=== PATIENT | female | born 1975 | race Caucasian/White ===

== ENCOUNTER 2017-02-17 11:28 | Inpatient (IN) ==
[2017-02-17 12:04] LABS: MANUAL DIFF NEEDED? NO
[2017-02-17 12:06] LABS: BASO% 0.2 % (0.0-0.8); EOS% 1.1 % (0.0-10.0); HEMATOCRIT 33.6 % (37.0-47.0); HEMOGLOBIN 11.2 g/dL (12.0-16.0); IMM GRAN# 0.01 X1000 (0.0-0.04); IMM GRAN% 0.1 % (0.0-0.5); LYMPH# 0.96 X1000 (1.2-3.4); LYMPH% 10.9 % (20.5-51.1); MCH 27.9 PG (27-31); MCHC 33.3 g/dL (33-37); MCV 83.6 FL (81-99); MONO# 0.43 X1000 (0.11-0.59); MONO% 4.9 % (1.7-9.3); MPV 9.5 FL (7.4-10.4); NEUT% 82.8 % (42.2-75.2); PLT 343 X1000 (130-400); RBC 4.02 XMIL (4.2-5.4)
[2017-02-17 12:18] LABS: BE 2.1 mmoll (-3.0-3.0); BLOOD TYPE ARTERIAL; DRAW SITE R RADIAL; METHB 1.3 % (0.0-1.5); O2(CT) 14.3 mL/dL (15.0-23.0); PCO2(98.6) 34 mmHg (35-45); PO2(98.6) 68 mmHg (60-100); SAMPLE BLOOD; SAO2 97.5 % (95.0-100.0); THB 11.9 g/dL (11.5-17.4); pH(98.6) 7.48 (7.35-7.45)
[2017-02-17 12:21] LABS: ALLEN TEST YES; MODALITY CANNULA
[2017-02-17 12:22] LABS: AGAP 16; ALBUMIN 3.3 g/dL (3.5-5.0); ALKALINE PHOSPHATASE 86 U/L (32-104); BUN 7 mg/dL (8-22); CALCIUM 8.3 mg/dL (8.8-10.2); CHLORIDE 98 mmol/L (98-107); COSMO 269; GOT 16 U/L (10-30); GPT 8 U/L (10-36); POTASSIUM 3.1 mmol/L (3.5-5.1); SODIUM 135 mmol/L (136-145); TCO2 21 mmol/L (25-35)
--- NOTE | 2017-02-17 12:25 | EKG Report ---
Test Performed on : 02/17/2017 12:22:08 PM Test Reason : SOB Blood Pressure : / mmHG Vent. Rate : 096 BPM Atrial Rate : 096 BPM P-R Int : 134 ms QRS Dur : 092 ms QT Int : 378 ms P-R-T Axes : 068 072 063 degrees QTc Int : 477 ms Normal sinus rhythm. Normal ECG No previous ECGs available Unconfirmed Result
--- NOTE | 2017-02-17 13:15 | Diag Imaging Result Document ---
PROCEDURE NAME: CHEST-2 VIEWS - 02/17/2017 TWO VIEWS OF THE CHEST: FINDINGS: There are patchy ill-defined opacities in the lung bases and perihilar regions. There are no previous studies. The heart size and pulmonary vascularity appear to be within normal limits. IMPRESSION: Patchy pulmonary edema versus atypical pneumonia.
--- NOTE | 2017-02-17 14:17 | Diag Imaging Result Document ---
PROCEDURE NAME: ANGIOGRAM/PULMONARY ARTERIES - 02/17/2017 CT OF THE CHEST WITH INTRAVENOUS CONTRAST: FINDINGS: There are no filling defects in the pulmonary arteries. The thoracic aorta is not distended, and there is no evidence of dissection. There is a small hiatal hernia. There is some poorly defined nodes in the AP window and subcarina as well as in the right paratracheal region. There are nonspecific axillary nodes. No abnormal fluid collections are present. There are patchy ground-glass opacities throughout both lungs consistent with a typical pneumonia or pulmonary edema. There is vacuum joint phenomenon in the manubrial sternal joint. IMPRESSION: Pulmonary edema versus atypical pneumonia. Nonspecific mediastinal adenopathy.
[2017-02-17] MEDS ORDERED: KLOR-CON PO ONE (14:38)
[2017-02-17] MEDS ORDERED: LASIX IV ONE (14:38)
[2017-02-17] MEDS ORDERED: ROCEPHIN 1 GM/NS 1 GM/50 ML IVPB IV ONE (14:40)
[2017-02-17] MEDS ORDERED: ZITHROMAX 500 MG/NS 500 MG/250 ML IVPB IV ONE (14:40)
--- NOTE | 2017-02-17 14:55 | PROVIDER DOCUMENTATION ---
This chart was entered by Jamey Brown Scribe, acting as scribe for Diogo Brewer MD. HPI-General Adult - General Chief Complaint: Shortness of Breath Stated Complaint: SOB Time Seen by Provider: 02/17/17 11:49 Source: patient Allergies/Adverse Reactions: Patient Allergies Allergy/AdvReac Type Severity Reaction Status Date / Time No Known Allergies Allergy Verified 06/27/13 14:02 Home Medications: Home Medication List Medication Instructions Recorded Confirmed Last Taken Type Aspirin [Aspir-Low] 81 mg PO DAILY 02/17/17 02/17/17 02/17/17 History Buprenorphine/Naloxone S.l. 8 mg SL BID 02/17/17 02/17/17 02/17/17 History [Suboxone 8 mg/2 mg] Metoprolol [Lopressor] 25 mg PO DAILY 02/17/17 02/17/17 02/17/17 History Prasugrel HCl [Effient] 10 mg PO DAILY 02/17/17 02/17/17 02/17/17 History Zolpidem Tartrate [Ambien] 10 mg PO HS 02/17/17 02/17/17 02/17/17 History - History of Present Illness -Gen Adult Nature of Presenting Problems: 41 yo F presents to the ER with complaint of fever and cough x2 days. Pt also complains of SOB and having trouble breathing. PT denies any sick contacts and has not had this happen to her before. Pt had an KS July 2016. Severity: reports: mild Onset/Duration: reports: 2 days ago Timing: reports: still present Associated Symptoms: reports: cough, fever/chills, shortness of breath Similar Symptoms Previously?: No Review of Systems - Adult - REVIEW OF SYSTEMS - ADULT Constitutional: reports: fever. denies: chills Cardiovascular: denies: chest pain, palpitations Respiratory: reports: cough, shortness of breath Gastrointestinal: denies: abdominal pain, nausea Musculoskeletal: denies: back pain, neck pain All Other Systems: Reviewed and Negative Past History - Adult - PAST MEDICAL HISTORY-ADULT Review of Records: reports: Old Records Reviewed, Nursing Assessment Review, Medications Reviewed Cardiovascular: reports: HTN, KS - IMMUNIZATION STATUS Childhood Immunizations: See Nurse Assessment Flu Vaccine: See Nurse Assessment - SOCIAL HISTORY Smoking: cigarettes, less than 1 pack/day Physical Exam-General - PHYSICAL EXAM-ADULT Initial Vital Signs Reviewed: Yes - CONSTITUTIONAL General Appearance: appears well, alert, no apparent distress - NECK Neck: full range of motion, supple - RESPIRATORY Respiratory: chest non-tender, lungs clear, normal breath sounds - MUSCULOSKELETAL Extremity: normal range of motion, non-tender, normal gait - SKIN Integumentary: normal color, normal turgor Progress - PLAN OF CARE/RESULTS Progress/Plan/Lab Results: Vital Signs - 8 hr 02/17/17 11:30 Temperature 100.4 F H Pulse Rate 112 H Respiratory Rate 20 Blood Pressure 128/76 O2 Sat by Pulse Oximetry 91 L Orders Category Date Time Status Cardiac Monitoring DIRECTED Care 02/17/17 11:40 Active CHEST-2 VIEWS [RAD] Stat Exams 02/17/17 11:40 Ordered BLOOD CULTURE [BLDCUL] Stat Lab 02/17/17 11:40 Ordered CBC WITH DIFF [HEME] Stat Lab 02/17/17 11:40 Ordered CK PROFILE [SP CHEM] Stat Lab 02/17/17 11:41 Ordered COMPREHENSIVE METABOLIC PANEL [CHEM] Stat Lab 02/17/17 11:40 Ordered D-DIMER PL [COAG] Stat Lab 02/17/17 11:41 Ordered LACTATE, PLASMA [CHEM] Stat Lab 02/17/17 11:40 Ordered PRO B-NATRIURETIC PEPTIDE Stat Lab 02/17/17 11:41 Ordered TROPONIN T Stat Lab 02/17/17 11:41 Ordered EKG [EKG] Stat Ther 02/17/17 11:40 Ordered Result Diagrams: 02/17/17 11:55 02/17/17 11:55 - EKG 1 Time of EKG reading by physician:: 12:23 EKG Read and Signed by:: Diogo Brewer EKG Interpretation (*Must complete 3 of following elements*): Normal Rate: 96 Rhythm: NSR [place]: normal QRS: normal UT Interval: normal ST Wave: normal Comments: normal - XRAY 1 XRAY: Bilateral XRAY Study: Chest Impression: Abnormal XRAY Interpretation: patchy pulmonary edema versus atypical pneumonia Departure - Departure Time of Disposition Decision: 14:46 DIAGNOSIS: Hypoxic CHF (congestive heart failure) Qualifiers: Congestive heart failure type: unspecified congestive heart failure type Congestive heart failure chronicity: unspecified congestive heart failure chronicity Qualified Code(s): I50.9 - Heart failure, unspecified Pneumonia Qualifiers: Pneumonia type: due to unspecified organism Laterality: bilateral Lung location : unspecified part of lung Qualified Code(s): J18.9 - Pneumonia, unspecified organism Disposition: ADMITTED INPATIENT 09 Certified Medical Emergency: Emergent Condition: Stable Referrals and Follow-Ups: None,PCP [Primary Care Provider] - - Critical Care Note This patient required my direct & personal management of CC.: No This chart was documented by the indicated scribe, (Jamey Brown Scribe) and accurately reflects the services I performed and decisions made by me, Diogo Brewer MD, as attested by the provider's signature.
[2017-02-17] MEDS ORDERED: NICODERM PATCH TD ONE (15:29)
[2017-02-17] MEDS ORDERED: TYLENOL PO PRN (17:09)
[2017-02-17] MEDS: NICODERM PATCH TD SCH (17:36)
--- NOTE | 2017-02-17 18:48 | HISTORY AND PHYSICAL ---
PRIMARY CARE PHYSICIAN: None. CHIEF COMPLAINT: Fever and cough with shortness of breath for the past 2 days that progressively worsened. HISTORY OF PRESENTING ILLNESS: This is a 41-year-old, female who presents to [facility] ER with complaints of a subjective fever, cough and shortness of breath for the past 2 days that had progressively worsened. On arrival to the emergency room, she had an O2 saturation of 91% that approximately 30 minutes later dropped to 84% on room air. She had a D-dimer of 1.39, a potassium of 3.1, a proBNP of 2048. Pulmonary arteriogram showed impression of pulmonary edema versus atypical pneumonia. No pulmonary emboli noted. So she will be admitted for further evaluation and treatment. PAST MEDICAL HISTORY: Anxiety, depression, recurrent UTIs, UT in July 2016 and hypertension. PAST SURGICAL HISTORY: Heart stent placement after her UT in July 2016. FAMILY HISTORY: Her mom and dad both have heart disease. SOCIAL HISTORY: She currently lives with family. She is a 1 pack a day smoker and has been so since she was 17 years old. She denied any alcohol or illicit drug use. ALLERGIES: She has no known drug allergies. HOME MEDICATIONS: Aspirin 81 mg p.o. daily, Suboxone 8 mg per 2 mg sublingual b.i.d., Lopressor 25 mg p.o. daily, Effient 10 mg p.o. daily and Ambien 10 mg p.o. at bedtime. LABORATORY DATA: White blood cell count of 8.80, hemoglobin 11.2, hematocrit 33.6, platelets 343,000, D-dimer 1.39. ABG showed a pH of 7.48, pCO2 of 34, PO2 68, bicarbonate 26.3. Sodium 135, potassium 3.1, chloride 98, CO2 21, BUN 7, creatinine 0.6, glucose 119. Creatine kinase was 37 with a troponin of less than 0.010 with a proBNP of 2049, plasma lactate of 1.6. Chest x-ray showed patchy pulmonary edema versus an atypical pneumonia. EKG showed normal sinus rhythm at 96. Pulmonary arteriogram showed pulmonary edema versus an atypical pneumonia, nonspecific mediastinal adenopathy, no filling defects in the pulmonary arteries. REVIEW OF SYSTEMS: She was positive for subjective fever, cough, shortness of breath. Denied any blurred vision, dizziness, chest pain, abdominal pain, constipation, diarrhea, burning or hurting with urination. PHYSICAL EXAMINATION: VITAL SIGNS: On arrival she had a temperature of 100.4 degrees, pulse 112, respirations 20, blood pressure 128/76. She was initially saturating 91% on room air and approximately 30 minutes later it dropped to 84% on room air. Placed on O2 via nasal cannula at 96-97%. GENERAL: This is a 41-year-old, female who when I went to the emergency room to initially see her was coming in from outside where she had gone to smoke. Patient was instructed that she is not allowed to smoke any longer while she is here in the hospital and she cannot leave the floor. Patient verbalized understanding of this. There was discussion about her smoking cessation at length with this patient due to her past history of heart disease, UT, heart stent placement and hypertension, and she verbalized understanding. HEENT: Normocephalic and atraumatic. Pupils are equal, round, and reactive to light. Extraocular movements are intact. The oropharynx and nares are clear. NECK: Supple. LUNGS: Decreased breath sounds bilaterally and some rhonchi in her left lobe. Equal lung expansion and chest wall movement were noted. HEART: Regular rate and rhythm. No murmurs, rubs, or gallops. ABDOMEN: Soft, nontender, nondistended. Bowel sounds are present x4 quadrants. EXTREMITIES: No clubbing, cyanosis, or edema. NEUROLOGICAL: Cranial nerves 2-12 appear grossly intact. ASSESSMENT: 1. Acute respiratory failure. 2. Bilateral pneumonia. 3. Pulmonary edema. 4. Elevated D-dimer. 5. Hypokalemia. PLAN: She is being admitted to the medical unit at [place]. 1. Placed on DuoNebs, Rocephin 1 gram IV q.24, Zithromax 500 IV q.24. 2. We will check an echocardiogram. 3. We placed her on Lasix 40 mg IV b.i.d. 4. Continue her home medications. 5. Healthy heart diet. 6. Incentive spirometry. O2 per protocol. 7. We will check a venous Doppler of her lower extremities to rule out any blood clots and we will re-check a CBC in the a.m. Dictated by RORY Oro for Roverto Wadsworth MD cc: RORY OroZulma, MD
[2017-02-17] MEDS: LASIX IV SCH (20:10)
[2017-02-17] MEDS: AMBIEN PO SCH (20:10)
[2017-02-17] MEDS: SUBOXONE 8 MG/2 MG SL SCH (20:10)
[2017-02-17] MEDS: DUONEB (A & A) INH SCH ×2 (20:21→22:55)
[2017-02-18] MEDS: DUONEB (A & A) INH SCH ×5 (03:20→20:48)
[2017-02-18 05:53] LABS: MANUAL DIFF NEEDED? NO
[2017-02-18 05:57] LABS: BASO% 0.4 % (0.0-0.8); EOS# 0.17 X1000 (0.0-0.7); EOS% 3.2 % (0.0-10.0); HEMATOCRIT 35.7 % (37.0-47.0); HEMOGLOBIN 11.3 g/dL (12.0-16.0); IMM GRAN# 0.01 X1000 (0.0-0.04); IMM GRAN% 0.2 % (0.0-0.5); LYMPH# 1.57 X1000 (1.2-3.4); LYMPH% 29.3 % (20.5-51.1); MCH 26.6 PG (27-31); MCHC 31.7 g/dL (33-37); MONO# 0.42 X1000 (0.11-0.59); MONO% 7.8 % (1.7-9.3); MPV 9.3 FL (7.4-10.4); NEUT% 59.1 % (42.2-75.2); PLT 359 X1000 (130-400); RBC 4.25 XMIL (4.2-5.4)
[2017-02-18 06:15] LABS: AGAP 15; ALBUMIN 3.5 g/dL (3.5-5.0); ALKALINE PHOSPHATASE 84 U/L (32-104); BUN 11 mg/dL (8-22); CALCIUM 8.2 mg/dL (8.8-10.2); CHLORIDE 98 mmol/L (98-107); COSMO 273; GOT 14 U/L (10-30); GPT 8 U/L (10-36); SODIUM 137 mmol/L (136-145); TCO2 24 mmol/L (25-35); TOTAL PROTEIN 7.4 g/dL (6.3-8.3)
[2017-02-18] MEDS ORDERED: LOPRESSOR PO SCH (09:00)
[2017-02-18] MEDS: EFFIENT PO SCH (09:10)
[2017-02-18] MEDS: ASPIRIN EC PO SCH (09:10)
[2017-02-18] MEDS: NICODERM PATCH TD SCH (09:10)
[2017-02-18] MEDS: LASIX IV SCH (09:11)
[2017-02-18] MEDS: SUBOXONE 8 MG/2 MG SL SCH ×2 (09:11→20:43)
[2017-02-18] MEDS: ROCEPHIN 1 GM/NS 1 GM/50 ML IVPB IV SCH (13:23)
--- NOTE | 2017-02-18 14:35 | ECHO REPORT ---
ORDER DATE: 02/18/2017 PROCEDURE: Two-dimensional echocardiogram DATE OF STUDY: 02/17/2017. ECHOCARDIOGRAPHIC MEASUREMENTS: 1. Interventricular septum 1.4 2. Left ventricular posterior wall 1.6. 3. Diastolic diameter 3.6. 4. Left atrium 3.3. 5. Aorta 3.6. INTERPRETATION: 1. Aortic valve leaflets are trileaflet. 2. Pulmonic valve was normal. 3. Mitral valve was normal. 4. Tricuspid valve was normal. 5. Normal left ventricular cavity size. Concentric left ventricular hypertrophy. Estimated ejection fraction of 60%. 6. There is trace to mild mitral regurgitation. 7. Mild tricuspid regurgitation. Peak velocity across the tricuspid valve was 2.8 m/sec. 8. Pulmonary artery systolic pressure 40 mmHg. 9. Peak velocity across the aortic valve less than 2 m/sec. There is no aortic stenosis. There is trivial aortic regurgitation. 10. There is no pericardial effusion or obvious intracardiac mass or thrombus seen. cc: MD Ghislaine Duong CRNP
[2017-02-18] MEDS ORDERED: ZITHROMAX 500 MG/NS 500 MG/250 ML IVPB IV SCH (15:00)
--- NOTE | 2017-02-18 16:05 | PROGRESS NOTE ---
DATE: 02/18/2017 Today Mr. Walker refers to be doing a lot better. She does have some residual cough but shortness of breath has significantly improved. OBJECTIVE: Vital signs: Blood pressure is 106/57, pulse of 69, respirations 18 , temperature 98.5 degrees. Patient is saturating 98% on room air. General: Ms. Walker is a 41- year-old female. She is in bed, not seemingly distressed. HEENT: Mucosa is pink and moist. Anicteric. Acyanotic. Neck: Supple. Chest: Air entry is bilaterally reduced. There are coarse posterior crepitations and some prolonged expiratory phase of respiration. Cardiovascular : Regular rate and rhythm. No murmurs, no rubs. No gallops. Abdomen: Soft. Extremities: No pedal edema. BRIDGE MANAGER: Patient is alert and oriented x4. There is no focal neurological deficit. LABORATORY DATA: WBC is 5.39, hemoglobin is 11.3, platelet count of 359,000. Chemistry is reviewed. Sodium is 137, potassium is 3.0, chloride is 98. Bicarb is 24. CURRENT MEDICATIONS INCLUDE: 1. Albuterol nebs. 2. Aspirin 81 mg daily. 3. 500 q.24 daily. 4. Ceftriaxone 1 g q.24 daily. 5. Furosemide 40 mg IV daily. 6. Metoprolol 25 mg daily. 7. 10 mg daily. CTA of the lungs done yesterday shows pulmonary edema versus atypical pneumonia. Nonspecific mediastinal adenopathy. An echocardiogram done today shows normal left ventricular cavity size with concentric left ventricular hypertrophy with ejection fraction of 60%. ASSESSMENT: 1. Acute hypoxemic respiratory failure. 2. Atypical pneumonia. 3. Possible COPD undiagnosed. 4. 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 6. History of coronary artery disease status post stent. 7. Possible diastolic heart failure. So in general I think Ms. Walker is doing a whole lot better. We are going to continue with the current antibiotics. She does not look any more overly fluid overloaded and we are getting side effects from the diuretic therapy (low potassium). I will therefore go ahead and discontinue the IV Lasix. We are going to continue with her dual anti-platelet therapy because of her recent stent placement. We will encourage the patient to walk around and sit up in the chair and hopefully by tomorrow we should be able to discharge her. cc: Tae Morales MD MTDD
[2017-02-18] MEDS: AMBIEN PO SCH (20:43)
[2017-02-19] MEDS: DUONEB (A & A) INH SCH ×4 (00:13→12:46)
[2017-02-19 07:55] LABS: MANUAL DIFF NEEDED? NO
[2017-02-19] MEDS: SUBOXONE 8 MG/2 MG SL SCH (08:15)
[2017-02-19] MEDS: EFFIENT PO SCH (08:15)
[2017-02-19] MEDS: NICODERM PATCH TD SCH (08:17)
[2017-02-19] MEDS: ASPIRIN EC PO SCH (08:17)
[2017-02-19 08:30] LABS: AGAP 14; BUN 12 mg/dL (8-22); CALCIUM 8.5 mg/dL (8.8-10.2); CHLORIDE 99 mmol/L (98-107); COSMO 274; POTASSIUM 3.2 mmol/L (3.5-5.1); SODIUM 137 mmol/L (136-145); TCO2 24 mmol/L (25-35)
[2017-02-19 08:41] LABS: BASO% 0.2 % (0.0-0.8); EOS# 0.22 X1000 (0.0-0.7); EOS% 3.4 % (0.0-10.0); HEMATOCRIT 38.6 % (37.0-47.0); HEMOGLOBIN 12.7 g/dL (12.0-16.0); IMM GRAN# 0.02 X1000 (0.0-0.04); IMM GRAN% 0.3 % (0.0-0.5); LYMPH# 1.61 X1000 (1.2-3.4); LYMPH% 24.7 % (20.5-51.1); MCH 27.3 PG (27-31); MCHC 32.9 g/dL (33-37); MCV 82.8 FL (81-99); MONO% 7.7 % (1.7-9.3); MPV 9.5 FL (7.4-10.4); NEUT% 63.7 % (42.2-75.2); PLT 382 X1000 (130-400); RBC 4.66 XMIL (4.2-5.4)
[2017-02-19] MEDS ORDERED: PRINIVIL PO SCH (09:00)
[2017-02-19] MEDS ORDERED: LOPRESSOR PO SCH (09:00)
[2017-02-19] MEDS ORDERED: KLOR-CON PO ONE (09:36)
[2017-02-19 10:44] LABS: BE 3.9 mmoll (-3.0-3.0); BLOOD TYPE ARTERIAL; DRAW SITE L BRACHIAL; METHB 1.2 % (0.0-1.5); O2(CT) 17.5 mL/dL (15.0-23.0); PCO2(98.6) 42 mmHg (35-45); PO2(98.6) 60 mmHg (60-100); SAMPLE BLOOD; SAO2 94.3 % (95.0-100.0); THB 13.7 g/dL (11.5-17.4); pH(98.6) 7.44 (7.35-7.45)
[2017-02-19 10:57] LABS: ALLEN TEST NO; MODALITY ROOM AIR
[2017-02-19] MEDS: ROCEPHIN 1 GM/NS 1 GM/50 ML IVPB IV SCH (13:53)
[2017-02-19] MEDS ORDERED: VENTOLIN HFA INH PRN (14:22)
[2017-02-19 17:00] VITALS: BP 111/66
--- NOTE | 2017-02-20 06:41 | DISCHARGE SUMMARY ---
ADMISSION DATE: 02/17/2017 DISCHARGE DATE: 02/19/2017 PRIMARY CARE PHYSICIAN: None. ADMISSION DIAGNOSES: 1. Acute respiratory failure. 2. Bilateral pneumonia. 3. Pulmonary edema. 4. Elevated D-dimer. 5. Hypokalemia. DISCHARGE DIAGNOSES: 1. Acute respiratory failure, hypoxemic, improved. 2. Bilateral pneumonia. 3. Possible chronic obstructive pulmonary disease undiagnosed. 4. Hypertrophic concentric cardiomyopathy. 5. Tobacco abuse. 6. Coronary artery disease, status post stent. 7. Possible diastolic congestive heart failure. SUMMARY OF FINDINGS: This is a 41-year-old female who presents to the emergency room with subjective fever, cough, and shortness of breath for 2 days that had progressively worsened. She had an O2 saturation of 91% on room air on arrival. Approximately 30 minutes later, it dropped to 84% on room air. She had a D-dimer of 1.39, a potassium of 3.1, and a proBNP of 2049. Pulmonary arteriogram showed an impression of pulmonary edema versus an atypical pneumonia but no pulmonary emboli noted. She was admitted, started on IV antibiotics, IV Lasix. An echocardiogram was obtained that showed an ejection fraction of 60% with a normal left ventricular cavity size. Bilateral lower extremity venous Doppler was negative for DVT. She has remained afebrile for greater than 24 hours. We discussed smoking cessation at length with this patient. She was noted to have some mild hypokalemia and we supplemented that. It is now felt that she can safely be discharged home. DISCHARGE MEDICATIONS: Will include Ventolin inhaler 2 puffs q.6 hours p.r.n., Zithromax 250 mg p.o. daily (#5, no refills). We will continue her Suboxone 8 mg sublingually b.i.d., lisinopril 2.5 mg p.o. daily (#30, no refills), Lopressor 25 mg p.o. daily, potassium 20 mEq p.o. daily, Effient 10 mg p.o. daily, Ambien 10 mg p.o. at bedtime. FOLLOWUP: She will follow up with the physician referral line to obtain a primary care physician. We also gave her information for the [facility]. She will also need to establish with Dr. Fischer, pulmonology. Thirty-five minutes. Dictated by RORY Oro for Tae Morales MD cc: RORY Oro MD
[2017-02-20] MEDS ORDERED: ZITHROMAX PO SCH (09:00)
[2017-02-20] MEDS ORDERED: KLOR-CON PO SCH (09:00)
--- NOTE | 2017-02-21 07:14 | Extremity Venous Study ---
PROCEDURE NAME: Venous U/S Bilateral Legs - 02/18/2017 BILATERAL VENOUS FLOW EVALUATION: INDICATION: Shortness of breath. Pulmonary edema. Elevated D dimer. FINDINGS: The deep veins of the lower extremities demonstrate appropriate compressibility and augmentation. No intraluminal thrombus is visualized. There is no evidence for DVT. The visualized superficial veins appear grossly patent. IMPRESSION: No evidence for deep venous thrombosis bilateral lower extremities.
--- NOTE | 2017-02-21 07:24 | Diag Imaging Result Document ---
PROCEDURE NAME: CHEST-PORTABLE - 02/19/2017 PORTABLE CHEST: COMPARISON: 02/17/2017. FINDINGS: The lungs are well expanded. The heart is not enlarged. The vessels are not distended. No pneumonia. No pleural effusion is identified. IMPRESSION: Negative chest.
== END 2017-02-19 16:52 | disposition home or self-care (01) ==
LOC: P.ED 11:28 → SUATTDRO 16:35 → P.MEDSURG 16:35
PROVIDERS: ATTEND Internal Medicine

== ENCOUNTER 2018-10-13 11:33 | Inpatient (IN) ==
[2018-10-13 16:05] LABS: UR AMPHETAMINES QUAL PRESUMPTIVE POSITIVE (NONE DETECT)
[2018-10-13 16:06] LABS: UR BARBITUATES QUAL NONE DETECTED (NONE DETECT); UR BENZODIAZEPIN QUAL PRESUMPTIVE POSITIVE (NONE DETECT); UR CANNABINOIDS QUAL NONE DETECTED (NONE DETECT); UR COCAINE QUAL NONE DETECTED (NONE DETECT); UR METHADONE QUAL NONE DETECTED (NONE DETECT); UR METHAMPHETAMINE QUAL NONE DETECTED (NONE DETECT); UR OPIATES QUAL NONE DETECTED (NONE DETECT); UR OXYCODONE QUAL PRESUMPTIVE POSITIVE (NONE DETECT); UR PCP QUAL NONE DETECTED (NONE DETECT); UR PROPOXYPHENE QUAL NONE DETECTED (NONE DETECT); UR TCA QUAL PRESUMPTIVE POSITIVE (NONE DETECT)
[2018-10-13] MEDS ORDERED: IMODIUM PO PRN (16:40)
[2018-10-13] MEDS ORDERED: SENOKOT PO PRN (16:40)
[2018-10-13] MEDS ORDERED: NICODERM PATCH TD PRN (16:40)
[2018-10-13] MEDS ORDERED: PHENOBARBITAL IV PRN (16:40)
[2018-10-13] MEDS ORDERED: ATARAX PO PRN (16:40)
[2018-10-13] MEDS ORDERED: ZOFRAN IV PRN (16:40)
[2018-10-13] MEDS ORDERED: TYLENOL PO PRN (16:40)
[2018-10-13] MEDS ORDERED: MAALOX PLUS LIQUID PO PRN (16:40)
[2018-10-13] MEDS ORDERED: ROBAXIN PO PRN (16:40)
[2018-10-13] MEDS ORDERED: D5W 1,000 ML IV PRN (16:40)
[2018-10-13] MEDS ORDERED: DULCOLAX PR PRN (16:40)
[2018-10-13] MEDS ORDERED: SINEMET 25/100 PO PRN (16:40)
[2018-10-13] MEDS ORDERED: MOTRIN PO PRN (16:40)
[2018-10-13] MEDS ORDERED: BENTYL PO PRN (16:40)
[2018-10-13] MEDS ORDERED: TUBERSOL ID ONE (16:40)
[2018-10-13 16:57] LABS: BILIRUBIN URINE NEGATIVE (NEGATIVE); CLARITY CLEAR (CLEAR); COLOR YELLOW; GLUCOSE URINE NEGATIVE (NEGATIVE); KETONE URINE NEGATIVE (NEGATIVE); URINE SOURCE VOIDED
[2018-10-13 17:03] LABS: URINE BACTERIA NEGATIVE /HFP; URINE CAST NONE SEEN /LPF; URINE CRYSTAL NONE SEEN /HPF; URINE EPITHELIAL CELLS >10 /HPF (<10); URINE RBC <10 /HPF (<10); URINE WBC <10 /HPF (<10); URINE YEAST NONE SEEN /HPF
[2018-10-13] MEDS: NICODERM PATCH TD SCH (17:28)
[2018-10-13] MEDS: TUBERSOL ID ONE ×2 (17:28→17:30)
[2018-10-13] MEDS: LIBRIUM PO PRN (17:31)
[2018-10-13 17:33] LABS: BLOOD URINE 1+ (NEGATIVE); LEUKOCYTES URINE NEGATIVE (NEGATIVE); NITRITE URINE NEGATIVE (NEGATIVE); PROTEIN URINE NEGATIVE (NEGATIVE); UROBILINOGEN URINE NORMAL
[2018-10-13 17:35] LABS: HEMATOCRIT 39.7 % (37.0-47.0); HEMOGLOBIN 13.4 g/dL (12.0-16.0); MCH 28.6 PG (27-31); MCHC 33.8 g/dL (33-37); MCV 84.6 FL (81-99); MPV 9.2 FL (7.4-10.4); RBC 4.69 XMIL (4.2-5.4); RDW 14.9 % (11.5-14.5); WBC 9.68 X1000 (4.8-10.8)
[2018-10-13] MEDS: SUBOXONE 2 MG/0.5 MG FILM SL SCH (17:36)
[2018-10-13 18:13] LABS: AMYLASE 41 U/L (20-200); LIPASE 52 U/L (13-60)
[2018-10-13 18:15] LABS: INR 0.93; PROTIME 12.9 Seconds (11.0-16.0)
[2018-10-13 18:17] LABS: AGAP 12; ALBUMIN 3.9 g/dL (3.5-5.0); ALKALINE PHOSPHATASE 75 U/L (32-104); BUN 7 mg/dL (8-22); CALCIUM 9.5 mg/dL (8.8-10.2); CHLORIDE 99 mmol/L (98-107); COSMO 273; CREATININE 0.8 mg/dL (0.5-0.9); ESTIMATED GFR > 60; GLUCOSE 84 mg/dL (70-104); GOT 21 U/L (10-30); GPT 12 U/L (10-36); POTASSIUM 4.4 mmol/L (3.5-5.1); SODIUM 138 mmol/L (136-145); TCO2 28 mmol/L (25-35); TOTAL PROTEIN 7.8 g/dL (6.3-8.3)
[2018-10-13] MEDS: SEROQUEL PO PRN (21:16)
[2018-10-14] MEDS: DESYREL PO PRN ×2 (00:23→23:32)
[2018-10-14] MEDS: SUBOXONE 2 MG/0.5 MG FILM SL SCH ×2 (04:37→16:50)
[2018-10-14] MEDS: XANAX PO PRN ×2 (04:46→12:21)
[2018-10-14] MEDS: PROTONIX PO SCH (06:11)
[2018-10-14] MEDS: ASPIRIN EC PO SCH (09:53)
[2018-10-14] MEDS: LOPRESSOR PO SCH (09:53)
[2018-10-14] MEDS: VITAMIN B-1 PO SCH (09:53)
[2018-10-14] MEDS: NICODERM PATCH TD SCH (09:53)
[2018-10-14] MEDS: THERA M PLUS PO SCH (09:53)
[2018-10-14] MEDS: EFFIENT PO SCH ×2 (09:53→09:54)
[2018-10-14] MEDS: FOLIC ACID PO SCH (09:53)
[2018-10-14] MEDS: LIBRIUM PO PRN ×2 (09:58→16:53)
[2018-10-14] MEDS: ZOFRAN ODT PO PRN (12:21)
--- NOTE | 2018-10-14 20:12 | PROGRESS NOTE ---
DATE: 10/14/2018 SUBJECTIVE: Patient notes that she is feeling a little better still having muscle aches sweating has improved. Denies any tremors. Denies any fevers or chills. Denies any headaches or focalized weakness. PHYSICAL: Vital signs reviewed, temperature 97.5, pulse 79, respiratory 20, BP 102/65 .General: Patient is very pleasant talk with she is in no respiratory distress. HEENT: Normocephalic. Neck: Supple. CV: Regular rate, no murmurs. Chest: Clear nonlabored. Abdomen: Soft, nondistended, nontender. Extremities: Moves all extremities. ASSESSMENT: 1. Nausea, vomiting, abdominal pain. 2. Myalgias. 3. Paresthesias. 4. Sweating. 5. Opiate abuse withdrawal and stabilization. 6. Polysubstance abuse withdrawal stabilization. PLAN: Will continue counseling, continue Suboxone 4 mg, certainly may need to increase this her symptoms do not improve, continue to follow. cc: Terrance Dang MD
[2018-10-14] MEDS: SEROQUEL PO PRN (21:24)
[2018-10-15] MEDS: PROTONIX PO SCH (06:29)
[2018-10-15] MEDS: SUBOXONE 2 MG/0.5 MG FILM SL SCH (06:29)
[2018-10-15] MEDS: THERA M PLUS PO SCH (09:35)
[2018-10-15] MEDS: ASPIRIN EC PO SCH (09:35)
[2018-10-15] MEDS: VITAMIN B-1 PO SCH (09:35)
[2018-10-15] MEDS: ZOFRAN ODT PO PRN (09:35)
[2018-10-15] MEDS: FOLIC ACID PO SCH (09:35)
[2018-10-15] MEDS: LOPRESSOR PO SCH ×2 (09:35→09:42)
[2018-10-15] MEDS: NICODERM PATCH TD SCH (09:35)
[2018-10-15] MEDS: LIBRIUM PO PRN ×2 (09:35→13:17)
[2018-10-15] MEDS: EFFIENT PO SCH (09:41)
[2018-10-15] MEDS ORDERED: SUBOXONE 2 MG/0.5 MG FILM SL ONE (10:15)
--- NOTE | 2018-10-15 10:31 | PROGRESS NOTE ---
DATE: 10/15/2018 CHIEF COMPLAINT: Nausea and vomiting. HISTORY OF PRESENT ILLNESS: The patient is a 42-year-old female who [facility] secondary to nausea, vomiting, abdominal pain, and myalgias. Notes that she has been abusing opiates and she has been trying to stop. SOCIAL HISTORY: Patient is single. She is unemployed. Lives at home in [place]. PAST MEDICAL HISTORY: She has a history of a heart attack. She has had a stent placed. Has high blood pressure, chronic anxiety, depression, recurrent kidney infections, and a history of anemia. MEDICATIONS: Opiates daily, Xanax 3 times a day at 1 mg, metoprolol 25 mg, vitamin D. ALLERGIES: No known drug allergies. REVIEW OF SYSTEMS: CINA score is elevated secondary to nausea, vomiting, frequent episodes of restlessness. She is unable sit still, frequently moving about. Has difficulty concentrating. Does have a headache. Denies any fevers or chills. Denies dysuria, frequency, urgency, hesitancy. Denies polyuria or polydipsia. Denies skin rashes, weight loss, or weight gain. SUBSTANCE ABUSE HISTORY: The patient was in [facility] in 2014. Stayed sober for approximately 1 month. She has been in [facility] for the past 6 months. Started drinking alcohol in 1997, stopped in 2017, has not drank since. Started depressants in March of 2018. Currently taking 3 times a day as prescribed. Tried Ecstasy once in 1997. Started opiates in 1997. Currently taking over 3 oxycodone 20 mg a day. Started smoking in 1992. Currently still smokes a half pack a day. FAMILY HISTORY: Noncontributory. PHYSICAL EXAMINATION: Vital Signs: Reviewed and stable. General: The patient is awake, alert. She is currently in no respiratory distress. She is fidgety on exam. Frequently has to be redirected to answer questions and stay on task. HEENT: Normocephalic and atraumatic. MINH. Neck: Supple. No JVD. Cardiovascular: Regular rate. No murmurs. Chest: Clear and nonlabored. Abdomen: Soft and nondistended. Extremities: Moves all extremities. Neurologic: No focal changes. Skin: Warm and dry. No rashes. ASSESSMENT: 1. Nausea and vomiting. 2. Abdominal pain. 3. Myalgias. 4. Paresthesias. 5. Paroxysmal sweating. 6. Opiate abuse, withdrawal, and stabilization. 7. Chronic tobacco abuse. 8. Known coronary artery disease. 9. Hypertension. PLAN: Discussed with patient the importance of outpatient life counseling as well as drug counseling. Discussed changing habits and thought processes. We will place her on Suboxone. We will begin counseling. Restart her home medications. Discussed the importance of stopping smoking given her known history of heart disease and we will follow. cc: Terrance Dang MD
[2018-10-15 14:10] VITALS: BP 110/65
[2018-10-15] MEDS ORDERED: SUBOXONE 8 MG/2 MG FILM SL SCH (21:00)
== END 2018-10-15 18:01 | disposition home or self-care (01) | DRG 897 ==
LOC: P.DIRADM 14:41 → P.MEDSURG 14:44
PROVIDERS: ADMIT Family Medicine; ATTEND Family Medicine
CPT/HCPCS: 80053; 80104; 80301; 80305; 80307; 80320; 81001; 82055; 82150; 83690; 84703; 85027; 85610; 86580; A9270; G0431; G0434; G0477; G0480; G6040